=== PATIENT | female | born 1945 | race American Indian/Alaskan Native ===

== ENCOUNTER 2018-06-24 10:33 | Inpatient (IN) | payer MEDICARE ==
[2018-06-24 10:33] VITALS: BMI 40.1
--- NOTE | 2018-06-24 11:17 | C.PDOC ---
History Of Present Illness 72 year old female presents to the ED for evaluation of new onset slurred speech and right leg weakness that started 06/17. Notes initially she began with vertigo like dizziness. The patient [place] [facility] [place]. Per patient she had a head CT, evaluated for possible CO exposure, but notes neg exposure at home per [facility]. Dizziness has since resolved. She also complains of new onset of difficulty ambulating due to right leg weakness, notes it feels unsteady I have to support myself. At baseline notes walking with no difficulty or assistance. + Slurred speech per PMD. Denies fever, chills, and any other associated symptoms. NEW ONSET SLURRED SPEECH, R LEG WEAKNESS SINCE 06/17. [place] [facility] [place], INITIALLY W VERTIGO LIKE DIZZY. PER PT, HAD HEAD CT. EVAL FOR POSSIBLE CO EXPOSURE, BUT "NEG" EXPOSURE @ HOME PER [facility]. DIZZY RESOLVED. NEW ONSET DIFF WALKING DUE TO R LEG WEAKNESS "IT FEELS UNSTEADY I NOW HAVE TO SUPPORT MYSELF". PS PREV WALKS WO DIFF OR ASSISTANCE. +SLURRED SPEECH PER PMD. EXAM NAD NONTOXIC HEENT ATRAUM EXT ATRAUM AROM WO DIFF NO EDEMA NEURO SEE [facility] REMAINDER NEG Time Seen by Provider: 06/24/18 10:40 Chief Complaint (Nursing): Weakness/Neurological Deficit History Per: Patient History/Exam Limitations: no limitations Onset/Duration Of Symptoms: Days Recent travel outside of the [place]: No Past Medical History Reviewed: Historical Data, Nursing Documentation, Vital Signs Vital Signs: Last Vital Signs Temp 98.8 F 06/24/18 10:50 Pulse 86 06/24/18 10:50 Resp 17 06/24/18 10:50 BP 160/92 H 06/24/18 10:50 Pulse Ox 100 06/24/18 10:50 - Medical History PMH: Anemia, HTN, Hypercholesterolemia, Hyperlipidemia Denies: Depression Family History: States: Unknown Family Hx - Social History Hx Tobacco Use: No Hx Alcohol Use: No Hx Substance Use: No - Immunization History Hx Tetanus Toxoid Vaccination: No Hx Influenza Vaccination: No Hx Pneumococcal Vaccination: No Review Of Systems Except As Marked, All Systems Reviewed And Found Negative. Constitutional: Negative for: Fever, Chills Neurological: Positive for: Weakness (to the right lower extremity. ), Dizziness, Other ((+) slurred speech. (+) difficulty ambulating due to right leg weakness.) Physical Exam - Physical Exam Appears: Non-toxic, No Acute Distress Skin: Warm, Dry Head: Atraumatic, Normacephalic Eye(s): bilateral: Normal Inspection Ear(s): Bilateral: Normal Nose: Normal Oral Mucosa: Moist Throat: Normal, No Erythema, No Exudate Neck: Normal ROM, Supple Chest: Symmetrical, No Deformity Cardiovascular: Rhythm Regular, No Murmur Respiratory: Normal Breath Sounds, No Rales, No Rhonchi, No Wheezing, Other (NARD) Gastrointestinal/Abdominal: Normal Exam, Soft, No Tenderness Extremity: Bilateral: Atraumatic, Normal Color And Temperature, Normal ROM (with no difficulty.), Other ((-) edema. ) ED Course And Treatment - Laboratory Results Result Diagrams: 06/24/18 11:40 06/24/18 12:34 O2 Sat by Pulse Oximetry: 100 (RA) Pulse Ox Interpretation: Normal - Other Rad CXR X-Ray: Viewed By Me, Read By Radiologist Interpretation: FINDINGS: LUNGS: No active pulmonary disease. PLEURA: No significant pleural effusion identified, no pneumothorax apparent. CARDIOVASCULAR: No aortic atherosclerotic calcification present. Mild cardiomegaly, likely artifact due to portable apical lordotic technique. No pulmonary vascular congestion. OSSEOUS STRUCTURES: No significant abnormalities. VISUALIZED UPPER ABDOMEN: Normal. OTHER FINDINGS: None. IMPRESSION: No active disease. - CT Scan/US CT Head Other Rad Studies (CT/US): Read By Radiologist CT/US Interpretation: FINDINGS: HEMORRHAGE: No intracranial hemorrhage. BRAIN: No mass effect or edema. Mild diffuse age-appropriate atrophy. There is severe patchy and confluent periventricular and deep/subcortical white matter lucency consistent with microvascular white matter ischemic change. There is a large old right cerebellar peduncle lacunar infarct, of CSF attenuation.. No evidence of acute infarct. There is a bulky calcification along the right aspect of the interhemispheric anterior falx cerebri. The possibility of a calcified meningioma must be considered. There is no noncalcified soft tissue component identified. VENTRICLES: Unremarkable. No hydrocephalus. CALVARIUM: Unremarkable. PARANASAL SINUSES: Unremarkable as visualized. No significant inflammatory changes. MASTOID AIR CELLS: Unremarkable as visualized. No inflammatory changes. OTHER FINDINGS: None. IMPRESSION: No evidence of acute infarct. Severe chronic white matter ischemic change. 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 Bulky calcification along the right aspect of the anterior falx cerebri. Possible calcified meningioma versus falx ossification. NIHSS Stroke Scale - Date/Time Evaluation Performed Date Performed: 06/24/18 Time Performed: 11:17 When Was NIHSS Performed: Baseline - How Severe is the Stroke Level of Consciousness: 0=Alert LOC to Questions: 0=Both comments correct LOC to commands: 0=Obeys both correctly Best Gaze: 0=Normal Visual: 0=No visual loss Facial: 0=Normal Motor Arm - Left: 0=No drift Motor Arm - Right: 0=No drift Motor Leg - Left: 0=No drift Motor Leg - Right: 1=Drift before 5 sec Limb Ataxia: 0=Absent Sensory: 0=Normal Best Language: 0=No aphasia Dysarthia: 0=Normal articulation Extinction & Inattention (Neglect): 0=Normal, no object Score: 1 rTPA Inclusion/Exclusion - Refusal of Treatment Patient Refused Treatment: Yes - Inclusion Criteria for Altepase Patient is 18 years or Older: Yes The Clinical Diagnosis of Ischemic Stroke That is Causing a Potentially Disabling Neurological Deficit: Yes Time of Onset is Well Established to be Less Than 270 Minute Before Treatment Would Begin: No Risk/Benefit Discussed With Patient/Family Member Present: Yes - Exclusion Criteria for Altepase Uncontrolled Hypertension at Time of Treatment (Systolic BP above 185 or Diastolic BP above 110 mmHg): No Active Internal Bleeding: No Known Bleeding Diathesis Including but Not Limited to: Platelets Below 100,000/mm,PTT Above 40 sec After Heparin Use, Current Use of Oral Anitcoagulant With INR Greater Than 1.7 or PT Greater Than 15 secs: No Evidence of an Intracranial Hemorrhage: No Evidence of Major Acute Infarct With Signs Greater Than 1/3 MCA Territory: No Suspicion of Subarachnoid Hemorrhage on Pretreatment Evaluation Even if CT Head Negative For Hemorrhage: No - Warning to TPA With Conditions Following Conditions Weighed Against Anticipated Benefit: Yes Condition: Stroke Serevity Too Mild, Care Team Unable to Determine Eligibilty Medical Decision Making Medical Decision Making: Initial plan: -CT Head w/o contrast -CXR -Blood sent. -EKG -Glucose Disposition Counseled Patient/Family Regarding: Studies Performed, Diagnosis - Disposition Disposition: HOSPITALIZED Disposition Time: 12:13 Condition: STABLE - POA Present On Arrival: None - Clinical Impression Clinical Impression: Leg weakness, Difficulty walking, Slurred speech - Scribe Statement The provider has reviewed the documentation as recorded by the Scribe (Stacy Ahuja) Provider Attestation: All medical record entries made by the Scribe were at my direction and personally dictated by me. I have reviewed the chart and agree that the record accurately reflects my personal performance of the history, physical exam, medical decision making, and the department course for this patient. I have also personally directed, reviewed, and agree with the discharge instructions and disposition.
[2018-06-24 11:44] LABS: BASO # 0.1 K/uL (0.0-0.2); BASO % 1.1 % (0.0-2.0); EOS # 0.2 K/uL (0.0-0.7); EOS % 3.1 % (0.0-4.0); HEMOGLOBIN 10.4 g/dL (11.0-16.0); LYMPH # 2.3 K/uL (1.0-4.3); LYMPH % 32.8 % (20.0-40.0); MEAN CELL VOLUME 91.3 fL (81.0-99.0); MEAN CORPUSCULAR HEMOGLOBIN 30.6 pg (27.0-31.0); MEAN CORPUSCULAR HGB CONC 33.5 g/dL (33.0-37.0); MEAN PLATELET VOLUME 8.8 fL (7.2-11.7); MONO # 0.6 K/uL (0.0-0.8); MONO % 8.6 % (0.0-10.0); NEUT # 3.7 K/uL (1.8-7.0); NEUT % 54.4 % (50.0-75.0); RBC 3.41 Mil/uL (3.80-5.20); RED CELL DISTRIBUTION WIDTH 15.1 % (11.5-14.5); WHITE BLOOD COUNT 6.9 K/uL (4.8-10.8)
[2018-06-24 11:52] LABS: PROTHROMBIN TIME 10.7 SECONDS (9.7-12.2)
[2018-06-24 12:10] LABS: SQUAMOUS EPITHIAL 3 /hpf (0-5); URINE BACTERIA RARE (<OCC); URINE BILIRUBIN NEGATIVE (NEGATIVE); URINE BLOOD NEGATIVE (NEGATIVE); URINE CLARITY Clear (Clear); URINE COLOR Yellow (YELLOW); URINE GLUCOSE (UA) NORMAL (Normal); URINE LEUKOCYTE ESTERASE NEG Leu/uL (Negative); URINE PROTEIN NEGATIVE (NEGATIVE); URINE UROBILINOGEN NORMAL mg/dL (0.2-1.0)
--- NOTE | 2018-06-24 12:11 | CT ---
Date of service: 06/24/2018 PROCEDURE: CT HEAD WITHOUT CONTRAST. HISTORY: R LEG WEAK, SLURRED SPEECH X 6 DAYS COMPARISON: None available. TECHNIQUE: Axial computed tomography images were obtained through the head/brain without intravenous contrast. Radiation dose: Total exam DLP = 1128.12 mGy-cm. This CT exam was performed using one or more of the following dose reduction techniques: Automated exposure control, adjustment of the mA and/or kV according to patient size, and/or use of iterative reconstruction technique. FINDINGS: HEMORRHAGE: No intracranial hemorrhage. BRAIN: No mass effect or edema. Mild diffuse age-appropriate atrophy. There is severe patchy and confluent periventricular and deep/subcortical white matter lucency consistent with microvascular white matter ischemic change. There is a large old right cerebellar peduncle lacunar infarct, of CSF attenuation.. No evidence of acute infarct. There is a bulky calcification along the right aspect of the interhemispheric anterior falx cerebri. The possibility of a calcified meningioma must be considered. There is no noncalcified soft tissue component identified. VENTRICLES: Unremarkable. No hydrocephalus. CALVARIUM: Unremarkable. PARANASAL SINUSES: Unremarkable as visualized. No significant inflammatory changes. MASTOID AIR CELLS: Unremarkable as visualized. No inflammatory changes. OTHER FINDINGS: None. IMPRESSION: No evidence of acute infarct. Severe chronic white matter ischemic change. 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 Bulky calcification along the right aspect of the anterior falx cerebri. Possible calcified meningioma versus falx ossification.
[2018-06-24 13:01] LABS: ALB/GLOB RATIO 1.3 (1.0-2.1); ALBUMIN 4.1 g/dL (3.5-5.0); CALCIUM 9.3 mg/dl (8.6-10.4)
--- NOTE | 2018-06-24 13:01 | RAD ---
Date of service: 06/24/2018 HISTORY: Code Stroke COMPARISON: No prior. FINDINGS: LUNGS: No active pulmonary disease. PLEURA: No significant pleural effusion identified, no pneumothorax apparent. CARDIOVASCULAR: No aortic atherosclerotic calcification present. Mild cardiomegaly, likely artifact due to portable apical lordotic technique. No pulmonary vascular congestion. OSSEOUS STRUCTURES: No significant abnormalities. VISUALIZED UPPER ABDOMEN: Normal. OTHER FINDINGS: None. IMPRESSION: No active disease.
[2018-06-24 13:55] LABS: TROPONIN I 0.128 ng/mL (0.00-0.120)
[2018-06-24 19:12] LABS: FREE T4 1.14 ng/dL (0.78-2.19)
--- NOTE | 2018-06-24 21:35 | CP.PCM.HP ---
Present on Admission - Present on Admission Any Indicators Present on Admission: No Past Patient History - Infectious Disease Hx of Infectious Diseases: None - Past Social History Smoking Status: Never Smoked - CARDIAC Hx Hypercholesterolemia: Yes Hx Hypertension: Yes - ENDOCRINE/METABOLIC Hx Diabetes Mellitus Type 1: Yes - HEMATOLOGICAL/ONCOLOGICAL Hx Anemia: Yes - MUSCULOSKELETAL/RHEUMATOLOGICAL Hx Falls: No - PSYCHIATRIC Hx Depression: No Hx Substance Use: No - SURGICAL HISTORY Hx Surgeries: No - ANESTHESIA Hx Anesthesia: No Meds Allergies/Adverse Reactions: Allergies Allergy/AdvReac Type Severity Reaction Status Date / Time No Known Allergies Allergy Verified 04/01/13 17:07 Results - Vital Signs Recent Vital Signs: Last Vital Signs Temp 99.4 F 06/24/18 16:21 Pulse 71 06/24/18 16:21 Resp 20 06/24/18 16:21 BP 149/72 06/24/18 16:21 Pulse Ox 96 06/24/18 16:30 - Labs Result Diagrams: 06/24/18 11:40 06/24/18 12:34 Labs: Laboratory Results - last 24 hr 06/24/18 06/24/18 06/24/18 11:05 11:40 11:40 WBC 6.9 RBC 3.41 L Hgb 10.4 L Hct 31.1 L MCV 91.3 MCH 30.6 MCHC 33.5 RDW 15.1 H Plt Count 189 MPV 8.8 Neut % (Auto) 54.4 Lymph % (Auto) 32.8 Osborne % (Auto) 8.6 Eos % (Auto) 3.1 Baso % (Auto) 1.1 Neut # (Auto) 3.7 Lymph # (Auto) 2.3 Osborne # (Auto) 0.6 Eos # (Auto) 0.2 Baso # (Auto) 0.1 PT 10.7 INR 1.0 APTT 36 H Sodium Potassium Chloride Carbon Dioxide Anion Gap BUN Creatinine Est GFR ( Amer) Est GFR (Non-Af Amer) POC Glucose (mg/dL) 144 H Random Glucose Calcium Total Bilirubin AST ALT Alkaline Phosphatase Troponin I Total Protein Albumin Globulin Albumin/Globulin Ratio Triglycerides Cholesterol LDL Cholesterol Direct HDL Cholesterol Homocysteine Free T4 TSH 3rd Generation Urine Color Urine Clarity Urine pH Ur Specific [place] Urine Protein Urine Glucose (UA) Urine Ketones Urine Blood Urine Nitrate Urine Bilirubin Urine Urobilinogen Ur Leukocyte Esterase Urine WBC (Auto) Urine RBC (Auto) Ur Squamous Epith Cells Urine Bacteria 06/24/18 06/24/18 06/24/18 11:45 12:34 16:27 WBC RBC Hgb Hct MCV MCH MCHC RDW Plt Count MPV Neut % (Auto) Lymph % (Auto) Osborne % (Auto) Eos % (Auto) Baso % (Auto) Neut # (Auto) Lymph # (Auto) Osborne # (Auto) Eos # (Auto) Baso # (Auto) PT INR APTT Sodium 141 Potassium 4.7 Chloride 105 Carbon Dioxide 27 Anion Gap 14 BUN 29 H Creatinine 1.4 H Est GFR ( Amer) 45 Est GFR (Non-Af Amer) 37 POC Glucose (mg/dL) Random Glucose 134 H Calcium 9.3 Total Bilirubin 0.6 AST 21 ALT 17 Alkaline Phosphatase 94 Troponin I 0.1280 H* 0.1250 H* Total Protein 7.4 Albumin 4.1 Globulin 3.3 Albumin/Globulin Ratio 1.3 Triglycerides 86 Cholesterol 158 LDL Cholesterol Direct 46 HDL Cholesterol 68 Homocysteine Free T4 TSH 3rd Generation Urine Color Yellow Urine Clarity Clear Urine pH 5.0 Ur Specific [place] 1.011 Urine Protein Negative Urine Glucose (UA) Normal Urine Ketones Negative Urine Blood Negative Urine Nitrate Negative Urine Bilirubin Negative Urine Urobilinogen Normal Ur Leukocyte Esterase Neg Urine WBC (Auto) 1 Urine RBC (Auto) 1 Ur Squamous Epith Cells 3 Urine Bacteria Rare 06/24/18 06/24/18 18:47 18:47 WBC RBC Hgb Hct MCV MCH MCHC RDW Plt Count MPV Neut % (Auto) Lymph % (Auto) Osborne % (Auto) Eos % (Auto) Baso % (Auto) Neut # (Auto) Lymph # (Auto) [place] # (Auto) Eos # (Auto) Baso # (Auto) PT INR APTT Sodium Potassium Chloride Carbon Dioxide Anion Gap BUN Creatinine Est GFR ( Amer) Est GFR (Non-Af Amer) POC Glucose (mg/dL) Random Glucose Calcium Total Bilirubin AST ALT Alkaline Phosphatase Troponin I Total Protein Albumin Globulin Albumin/Globulin Ratio Triglycerides Cholesterol LDL Cholesterol Direct HDL Cholesterol Homocysteine 17.3 H Free T4 1.14 TSH 3rd Generation 1.55 Urine Color Urine Clarity Urine pH Ur Specific [place] Urine Protein Urine Glucose (UA) Urine Ketones Urine Blood Urine Nitrate Urine Bilirubin Urine Urobilinogen Ur Leukocyte Esterase Urine WBC (Auto) Urine RBC (Auto) Ur Squamous Epith Cells Urine Bacteria
--- NOTE | 2018-06-25 08:23 | HP ---
CHIEF COMPLAINT: Slurring of speech and weakness of the right side, difficulty walking for few days. HISTORY OF PRESENT ILLNESS: This is a 72-year-old -[place] female, well known to me with history of hypertension, hyperlipidemia, who is compliant with her diet, medication, and followup. The patient was in the emergency room a week ago, and she was having some symptoms of right-sided numbness and weakness. She underwent a CAT scan, and the patient was also evaluated for possible exposure to carbon monoxide. She also was complaining of dizziness or vertigo at that time. The patient was evaluated. Her dizziness was resolved. She was sent home. The patient did not improve. She continued to have right-sided weakness, tingling on the face, numbness, and the patient is not able to control her gait. She has difficulty walking. She is weak. She also denied any chest pain. She denies any history of dyspnea on exertion, orthopnea, PND, or . She is having hard time producing words. The patient denies any history of seizure-like activity. She denies a history of head injury, trauma, fall, or loss of consciousness. There is no history of abdominal pain, nausea, vomiting, or diarrhea. There is no history of polyuria, polydipsia, or polyphagia. There is no history of hematuria or pyuria. The patient denies any sneezing, itchy eyes, or itchy nose. There is no history of trauma or fall. The patient denies any history of joint pain or hip pain. She denies any sneezing, itchy eyes, or itchy nose. PAST MEDICAL HISTORY: Hypertension, hyperlipidemia. SOCIAL HISTORY: She is nonsmoker, non-EtOH user. CURRENT MEDICATIONS: At home, she is on Benicar and Lipitor. PHYSICAL EXAMINATION: GENERAL: An elderly female, in no acute distress. VITAL SIGNS: Blood pressure 161/78, pulse 81, respiratory rate 20, and temperature 98.6. SKIN: Senile turgor. No bruises. No purpura. No petechiae. No ecchymosis. HEENT: Atraumatic, normocephalic. Negative pallor. Negative jaundice. Extraocular movements are intact. NECK: Supple. Flat neck vein. No JVD. No lymph nodes. No thyromegaly. No carotid bruit. CHEST WALL: Bilateral symmetrical expansion. LUNGS: Clear. No rale. No rhonchi. CARDIOVASCULAR SYSTEM: PMI not localized. S1, S2 plus S3 positive. ABDOMEN: Soft, nontender. Bowel sounds are positive. RECTAL: No masses. No bleed. GENITAL: Normal. CENTRAL NERVOUS SYSTEM: Alert, awake, and oriented x3. Cranial nerves II through XII are normal. The patient has slurring of speech, and her right-sided power is 4/5, left side is 5/5. ASSESSMENT: 1. Cerebrovascular accident, most likely it is left middle cerebral artery territory. 2. Hypertension, poorly controlled. 3. Hyperlipidemia. 4. The patient also has positive troponin. Rule out myocardial infarction. PLAN: Admit. Detailed orders are written. Seen and examined. Wilfred Chacon MD
[2018-06-25] MEDS: Pantoprazole 40 mg EC Tab PO SCH (09:43)
--- NOTE | 2018-06-25 13:38 | CP.PCM.CON ---
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 PAROXYSMAL AFIB CARDIO FOLLOW UP AND POSSIBLE LOOP RECORDING CONTINUE ANTIPLATELETS, ARB, & STATIN MRI/EEG/ECHO Past Patient History - Infectious Disease Hx of Infectious Diseases: None - Past Social History Smoking Status: Never Smoked - CARDIAC Hx Hypercholesterolemia: Yes Hx Hypertension: Yes - ENDOCRINE/METABOLIC Hx Diabetes Mellitus Type 1: Yes - HEMATOLOGICAL/ONCOLOGICAL Hx Anemia: Yes - MUSCULOSKELETAL/RHEUMATOLOGICAL Hx Falls: No - PSYCHIATRIC Hx Depression: No Hx Substance Use: No - SURGICAL HISTORY Hx Surgeries: No - ANESTHESIA Hx Anesthesia: No Meds Allergies/Adverse Reactions: Allergies Allergy/AdvReac Type Severity Reaction Status Date / Time No Known Allergies Allergy Verified 04/01/13 17:07 - Medications Medications: Current Medications Acetaminophen (Tylenol 325mg Tab) 650 mg PO Q6 PRN PRN Reason: Pain, moderate (4-7) Aspirin (Aspirin Chewable) 81 mg PO DAILY [facility] Last Admin: 06/25/18 09:43 Dose: 81 mg Carvedilol (Coreg) 3.125 mg PO BID [facility] Last Admin: 06/25/18 09:42 Dose: 3.125 mg Folic Acid (Folic Acid) 1 mg PO DAILY [facility] Heparin Sodium (Porcine) (Heparin) 5,000 units SC Q8 [facility] Last Admin: 06/25/18 13:01 Dose: 5,000 units Losartan Potassium (Cozaar) 25 mg PO DAILY [facility] Last Admin: 06/25/18 09:43 Dose: 25 mg Pantoprazole Sodium (Protonix Ec Tab) 40 mg PO DAILY [facility] Last Admin: 06/25/18 09:43 Dose: 40 mg Rosuvastatin Calcium (Crestor) 10 mg PO HS [facility] Results - Vital Signs Recent Vital Signs: Last Vital Signs Temp 98.3 F 06/25/18 07:30 Pulse 79 06/25/18 12:25 Resp 18 06/25/18 07:30 BP 141/75 06/25/18 07:30 Pulse Ox 96 06/25/18 07:30 - Labs Result Diagrams: 06/24/18 11:40 06/24/18 12:34 Labs: Laboratory Results - last 24 hr 06/24/18 06/24/18 06/24/18 11:40 12:34 16:27 POC Glucose (mg/dL) Hemoglobin A1c 8.1 H Troponin I 0.1280 H* 0.1250 H* Homocysteine Free T4 TSH 3rd Generation 06/24/18 06/24/18 06/24/18 16:55 18:47 18:47 POC Glucose (mg/dL) 128 H Hemoglobin A1c Troponin I Homocysteine 17.3 H Free T4 1.14 TSH 3rd Generation 1.55 06/24/18 06/25/18 21:00 00:25 POC Glucose (mg/dL) 137 H Hemoglobin A1c Troponin I 0.1280 H* Homocysteine Free T4 TSH 3rd Generation
--- NOTE | 2018-06-25 22:54 | CP.PCM.PN ---
Subjective - Date & Time of Evaluation Date of Evaluation: 06/25/18 Time of Evaluation: 08:30 - Subjective Subjective: dictated Objective - Vital Signs/Intake and Output Vital Signs (last 24 hours): Temp Pulse Resp BP Pulse Ox 98.2 F 67 18 117/55 L 100 06/25/18 15:39 06/25/18 15:39 06/25/18 15:39 06/25/18 15:39 06/25/18 15:39 Intake and Output: 06/25/18 06/26/18 18:59 06:59 Intake Total 350 Balance 350 - Medications Medications: Current Medications Acetaminophen (Tylenol 325mg Tab) 650 mg PO Q6 PRN PRN Reason: Pain, moderate (4-7) Aspirin (Aspirin Chewable) 81 mg PO DAILY [facility] Last Admin: 06/25/18 09:43 Dose: 81 mg Carvedilol (Coreg) 3.125 mg PO BID [facility] Last Admin: 06/25/18 17:13 Dose: 3.125 mg Folic Acid (Folic Acid) 1 mg PO DAILY [facility] Heparin Sodium (Porcine) (Heparin) 5,000 units SC Q8 [facility] Last Admin: 06/25/18 21:37 Dose: 5,000 units Losartan Potassium (Cozaar) 25 mg PO DAILY [facility] Last Admin: 06/25/18 09:43 Dose: 25 mg Pantoprazole Sodium (Protonix Ec Tab) 40 mg PO DAILY [facility] Last Admin: 06/25/18 09:43 Dose: 40 mg Rosuvastatin Calcium (Crestor) 10 mg PO HS [facility] Last Admin: 06/25/18 21:37 Dose: 10 mg - Labs Labs: 06/24/18 11:40 06/24/18 12:34 PT 10.7 SECONDS (9.7-12.2) 06/24/18 11:40 INR 1.0 06/24/18 11:40 APTT 36 SECONDS (21-34) H 06/24/18 11:40
--- NOTE | 2018-06-26 02:52 | CON ---
DATE: 06/25/2018 REASON FOR CONSULTATION: Elevated troponin. HISTORY OF PRESENT ILLNESS: The patient is 72-year-old female who has history of hypertension and diabetes mellitus, unaware of any prior cardiac history or any history of stroke in the past, presented because of right leg weakness and inability to walk while she was in her sister's home. The patient also noticed slurring of speech and numbness in her right side of the face. She denied any right arm weakness. She did feel dizzy initially. Her speech has improved overnight, but the right leg weakness had persisted to a lesser extent. The patient denies any retrosternal chest pain, shortness of breath, or palpitations. The patient denies any syncope or fall episode. PAST MEDICAL HISTORY: The patient denies any history of stroke or heart attack. No history of cancer. SOCIAL HISTORY: The patient is nonsmoker and nondrinker. MEDICATIONS: Aspirin 81 mg once a day, Coreg 3.125 mg twice a day, Cozaar 25 mg once a day, Crestor 10 mg once a day, Folic acid 1 mg daily, subcutaneous heparin 5000 units every 8 hours, Protonix 40 mg once a day, and Tylenol 650 mg every 6 hours p.r.n. REVIEW OF SYSTEMS: No nausea or vomiting, no fever or chills, and no productive cough, no retrosternal chest pain. PHYSICAL EXAMINATION: GENERAL: The patient is an elderly female, who does not appear to be in acute distress. VITAL SIGNS: Blood pressure 141/75, heart rate 70, temperature 98.4, and respirations 18. HEENT: Normocephalic. CHEST: Clear. HEART: S1 and S2, regular. ABDOMEN: Soft. EXTREMITIES: 1+ pitting edema. LABORATORY DATA: SMA-7: Sodium 141, potassium 4.7, chloride 105, CO2 of 27, glucose 134, BUN 29, and creatinine 1.4. Troponins were 0.128, 0.125, and 0.128 respectively. TSH level is within normal limits. Hemoglobin and hematocrit 10.4 and 31.1. White count and platelet counts are within normal limits. PTT 36, INR is 1. Chest x-ray: No active disease. EKG revealed sinus rhythm, old anterior infarct, and poor R-wave progression. Consider old anterior infarct. Head CT scan without contrast, no evidence of , severe chronic white matter ischemic changes. Large old right cerebellar peduncle lacunar infarct, falcine calcification along the right aspect of the anterior falx cerebri. Possible calcified meningioma, with falx ossification. ASSESSMENT: 1. Consider acute cerebrovascular accident. 2. Borderline troponin elevation, most likely related to the acute cerebrovascular accident and less likely to [id number] myocardial infarction. 3. Hypertension and diabetes mellitus. 4. Chronic renal insufficiency. 5. Mild anemia. RECOMMENDATIONS: Continue aspirin 81 mg once a day, Coreg 3.125 mg twice a day, Cozaar 25 mg once a day, and heparin 5000 units subcutaneously every 8 hours. Obtain an echocardiographic study, carotid Doppler, and the patient is scheduled for brain MRI. Teja Doll MD
--- NOTE | 2018-06-26 04:43 | PN ---
DATE: 06/25/2018 SUBJECTIVE: The patient is seen by Neurology. She still has right-sided weakness, and she is for MRI, carotid Doppler, and echocardiogram. Positive troponin. No nausea, vomiting. PHYSICAL EXAMINATION: VITAL SIGNS: Blood pressure 171/54, pulse 67, respiratory rate 18, temperature 98.2. LUNGS: Clear. CARDIOVASCULAR SYSTEM: S1, S2. Regular. ABDOMEN: Soft. ASSESSMENT: 1. Positive troponin. Rule out myocardial infarction. Pending echocardiogram. 2. Cerebrovascular accident. 3. Hypertension. PLAN: MRI, echocardiogram pending. Wilfred Chacon MD
--- NOTE | 2018-06-26 07:11 | CON ---
DATE: 06/25/2018 ATTENDING PHYSICIAN: Wilfred Chacon MD. LOCATION: The patient's room# 656, bed A. REASON FOR CONSULTATION: Right leg weakness. CHIEF COMPLAINT: The patient was admitted at [facility] with history of 2 days of right leg weakness. From neurological point of view, I was called in to evaluate her for further management. HISTORY OF PRESENT ILLNESS: Ms. Stephanie Mas is a 72-year-old right-handed , morbidly obese female, presenting with about a week ago she started to have dizziness for a few days; later, while she was at home had abrupt onset of right leg weakness which was not making to walk or drag her legs. Some difference in the right leg symptoms associating with some problem of getting her words out. This episode was for about a day as two. At present, she denies any new complaints. The symptoms are all gone at present. This episode is not associating with visual dysfunction. No sensory dysfunction. This similar symptoms are all new to her, never had it before, not associating with any involuntary movements. PAST MEDICAL HISTORY: [id number] diabetes mellitus, hypertension, dyslipidemia. ALLERGIES: NO KNOWN ALLERGIES. REVIEW OF SYSTEMS: Twelve-point system being reviewed. From neuro, new right leg weakness. MEDICATIONS: Aspirin, carvedilol, losartan, rosuvastatin, pantoprazole. PHYSICAL EXAMINATION: VITAL SIGNS: Blood pressure 141/75, mean arterial pressure 97, respiratory rate 18, pulse rate 79 and regular, temperature 98.3. NECK: Supple. No carotid bruits. HEART: Sounds regular. Systolic murmur at left sternal border. Extremities: No edema in legs. NEUROLOGIC: Mental status examination: She is awake, alert and oriented to person, place and time. Speech is clear. Naming, repetition, fluency, comprehension all within normal. Cranial nerve examination: Visual field intact. Pupils reactive to light. Extraocular movement normal. No nystagmus. No facial sensory deficit. No facial asymmetry. Hearing is normal. Tongue is midline. Good gag. Motor examination: Outstretched hand with eyes closed, no drift noted. Power is symmetric on either side. Deep tendon reflexes biceps, brachialis, triceps trace and both knees and both ankles are absent. Plantars are equivocal response on both sides. Sensory examination: Distal symmetric sensorimotor neuropathy. Coordination: Finger-nose test is intact. Gait is normal. CONCLUSION: On reviewing her history from her as well as from the records and my neurological examination, the patient showed evidence of posterior cerebral artery dysfunction manifesting with dizziness, right leg weakness and some Broca's aphasia, all consistent with dominant hemispheric dysfunction. This probably thromboembolic phenomena either could be from the heart or carotid source. The patient is also presenting with bilateral distal symmetric sensorimotor neuropathy. LABORATORY DATA: Her workup, CT of the head has been reviewed, no acute pathology is noted. EKG normal sinus rhythm. Blood workup, WBC 6.9, hemoglobin 10.4, hematocrit 31.4, platelet 189. Sodium 141, potassium 4.7, chloride 105, bicarbonate 27, BUN 29, creatinine 1.4, glucose 137, troponin 0.1280, homocysteine 17.3. TSH of 1.55. Cholesterol 158, triglyceride 86, HDL is 68, TSH 1.55. Urinalysis is normal. RECOMMENDATIONS: 1. MRI of the brain to rule out any structural cause for her problem. 2. Carotid Doppler to assess the stenosis. 3. Cardioembolic phenomena should be ruled out by doing echocardiogram. 4. Diabetic control, blood pressure control. 5. Continue aspirin for stroke prophylaxis. Continue other medication as well for low-dose statin and angiotensin receptor blockers. 6. Considering her physique the patient should have a polysomnogram which can be done as outpatient to rule out sleep-related breathing disorder which could be the comorbid risk factors which has to be studied and corrected. 7. Losing weight, diabetic control, blood pressure control, all been discussed with the patient. 8. The patient will be followed closely with you. Pro Harmon MD
--- NOTE | 2018-06-26 11:26 | PN ---
DATE: 06/26/2018 TIME OF EVALUATION: 06:40 a.m. NEUROLOGICAL PROBLEM: Possible [employer] territory TIA. PHYSICAL EXAMINATION: VITAL SIGNS: Blood pressure 159/85, mean arterial pressure 109, respiratory rate 18 to 20, pulse rate of 65 and regular, temperature 98.5. The patient is more awake, alert, oriented to person, place, and time. She walked to herself with the knees around the hallway holding the rails and the wall. Speech has not changed. Denies any speech impairment at present. No dizziness. Rest of the examination is unchanged. The patient should have MRI of the brain today prior to discharge. Continue antiplatelets as recommended. If all good medically, the patient can be discharged and should have followup visit with me as outpatient. Pro Harmon MD
[2018-06-26] MEDS: Pantoprazole 40 mg EC Tab PO SCH (12:19)
[2018-06-26 14:14] LABS: BASO % 0.4 % (0.0-2.0); EOS # 0.2 K/uL (0.0-0.7); EOS % 2.9 % (0.0-4.0); LYMPH # 2.5 K/uL (1.0-4.3); LYMPH % 35.9 % (20.0-40.0); MEAN CELL VOLUME 92.1 fL (81.0-99.0); MEAN CORPUSCULAR HEMOGLOBIN 30.4 pg (27.0-31.0); MEAN PLATELET VOLUME 8.9 fL (7.2-11.7); MONO # 0.5 K/uL (0.0-0.8); NEUT # 3.8 K/uL (1.8-7.0); NEUT % 53.8 % (50.0-75.0); RBC 3.62 Mil/uL (3.80-5.20); RED CELL DISTRIBUTION WIDTH 15.3 % (11.5-14.5)
[2018-06-26 14:22] LABS: CALCIUM 9.3 mg/dl (8.6-10.4)
[2018-06-26 16:03] VITALS: RESP 20
--- NOTE | 2018-06-26 18:20 | PN ---
DATE: 06/26/2018 SUBJECTIVE: The patient is still experiencing right leg weakness. An MRI was attempted, but the patient could not fit in the machine. The patient did ambulate with the help of walking cane and the physical therapy team. She denies any substernal chest pain. PHYSICAL EXAMINATION: VITAL SIGNS: Blood pressure 182/83, heart rate 68, temperature 98.3, and respirations 20. HEENT: Pale conjunctivae. CHEST: Clear. HEART: S1 and S2 regular. EXTREMITIES: 1+ pitting edema. LABORATORY DATA: Today's blood sugar is 145. ASSESSMENT : 1. Borderline troponin elevation. 2. Consider acute cerebrovascular accident. 3. Hypertension and diabetes mellitus. 4. Mild anemia. 5. Chronic renal insufficiency. RECOMMENDATIONS: Continue aspirin 81 mg once a day, Coreg 3.125 mg twice a day, Cozaar 50 mg once a day, Crestor 10 mg once a day, subcutaneous heparin 5000 units every 8 hours. I would review the echocardiographic study done today. Follow up carotid Doppler. In the meantime, I recommend obtaining repeat head CT scan without contrast. Teja Doll MD
--- NOTE | 2018-06-26 20:10 | CARD ---
APPROVED REPORT Date of service: 06/26/2018 EXAM: Two-dimensional and M-mode echocardiogram with Doppler and color Doppler. Other Information Quality : GoodRhythm : INDICATION CVA/TIA 2D DIMENSIONS IVSd1.5 (0.7-1.1cm)LVDd4.1 (3.9-5.9cm) PWd1.3 (0.7-1.1cm)LA Alfctf83 (18-58mL) LVDs3.1 (2.5-4.0cm)FS (%) 25.2 % LVEF (%)55.0 (>50%)LVEF ([facility])61.51 % M-Mode DIMENSIONS Left Atrium (MM)3.66 (2.5-4.0cm)IVSd0.85 (0.7-1.1cm) Aortic Root3.61 (2.2-3.7cm)LVDd6.79 (4.0-5.6cm) Aortic Cusp Exc.1.77 (1.5-2.0cm)PWd0.77 (0.7-1.1cm) FS (%) 35 %LVDs4.40 (2.0-3.8cm) LVEF (%)63 (>50%) Mitral Valve MV E Hezutdyc022.5cm/sMV A Ihktwvqv722.8cm/sE/A ratio0.9 TDI Lateral E' Peak V5.84cm/sMedial E' Peak V5.90cm/sE/Lateral E'17.6 E/Medial E'17.4 Tricuspid Valve TR Peak Hizlqciy688wo/sTR Peak Gr.14pnNfPZVB24jcTn LEFT VENTRICLE The left ventricle is normal size. There is normal left ventricular wall thickness. The left ventricular function is normal. The left ventricular ejection fraction is within the normal range. No regional wall motion abnormalities noted. Transmitral Doppler flow pattern is Grade II-pseudonormal filling dynamics. The left atrial pressure is mildly elevated. No left ventricle thrombus noted on this study. There is no ventricular septal defect visualized. There is no left ventricular aneurysm. There is no mass noted in the left ventricle. RIGHT VENTRICLE The right ventricle is normal size. There is normal right ventricular wall thickness. The right ventricular systolic function is normal. ATRIA The left atrium size is normal. The right atrium size is normal. The interatrial septum is intact with no evidence for an atrial septal defect. AORTIC VALVE The aortic valve is mildly to moderately sclerotic. There is mild aortic regurgitation. There is no aortic valvular stenosis. There is no aortic valvular vegetation. MITRAL VALVE The mitral valve is normal in structure and function. Mitral annular calcification is mild to moderate. There is no evidence of mitral valve prolapse. There is no mitral valve stenosis. There is no mitral valve regurgitation noted. TRICUSPID VALVE The tricuspid valve is normal in structure and function. There is no tricuspid valve regurgitation noted. There is no tricuspid valve prolapse or vegetation. There is no tricuspid valve stenosis. PULMONIC VALVE The pulmonary valve is normal in structure and function. There is no pulmonic valvular regurgitation. There is no pulmonic valvular stenosis. GREAT VESSELS The aortic root is normal in size. The ascending aorta is normal in size. The pulmonary artery is normal. The IVC is normal in size and collapses >50% with inspiration. PERICARDIAL EFFUSION The pericardium appears normal. There is no pleural effusion. <Conclusion> The left ventricular function is normal. The left ventricular ejection fraction is within the normal range. No regional wall motion abnormalities noted. Transmitral Doppler flow pattern is Grade II-pseudonormal filling dynamics. The left atrial pressure is mildly elevated. There is mild aortic regurgitation.
--- NOTE | 2018-06-27 02:59 | CP.PCM.PN ---
Subjective - Date & Time of Evaluation Date of Evaluation: 06/26/18 Time of Evaluation: 08:00 - Subjective Subjective: dictated Objective - Vital Signs/Intake and Output Vital Signs (last 24 hours): Temp Pulse Resp BP Pulse Ox 98.6 F 62 20 111/73 97 06/26/18 23:25 06/27/18 00:28 06/26/18 23:25 06/26/18 23:25 06/26/18 23:25 Intake and Output: 06/26/18 06/27/18 18:59 06:59 Intake Total 250 Balance 250 - Medications Medications: Current Medications Acetaminophen (Tylenol 325mg Tab) 650 mg PO Q6 PRN PRN Reason: Pain, moderate (4-7) Aspirin (Aspirin Chewable) 81 mg PO DAILY [facility] Last Admin: 06/26/18 12:19 Dose: 81 mg Carvedilol (Coreg) 6.25 mg PO BID [facility] Last Admin: 06/26/18 17:54 Dose: 6.25 mg Folic Acid (Folic Acid) 1 mg PO DAILY [facility] Last Admin: 06/26/18 12:19 Dose: 1 mg Heparin Sodium (Porcine) (Heparin) 5,000 units SC Q8 [facility] Last Admin: 06/26/18 21:50 Dose: 5,000 units Losartan Potassium (Cozaar) 50 mg PO DAILY [facility] Last Admin: 06/26/18 12:19 Dose: 50 mg Pantoprazole Sodium (Protonix Ec Tab) 40 mg PO DAILY [facility] Last Admin: 06/26/18 12:19 Dose: 40 mg Rosuvastatin Calcium (Crestor) 10 mg PO HS [facility] Last Admin: 06/26/18 21:50 Dose: 10 mg - Labs Labs: 06/26/18 13:58 06/26/18 13:58 PT 10.7 SECONDS (9.7-12.2) 06/24/18 11:40 INR 1.0 06/24/18 11:40 APTT 36 SECONDS (21-34) H 06/24/18 11:40
--- NOTE | 2018-06-27 06:18 | PN ---
DATE: 06/27/2018 SUBJECTIVE: The patient is waiting for an echocardiogram. Her troponins are positive. The patient's blood pressure is down. MRI could not be done because of body habitus. No fever. No chills. PHYSICAL EXAMINATION: VITAL SIGNS: Blood pressure 152/76, pulse 73, respiratory rate 20, temperature 98.6. LUNGS: Clear. CARDIOVASCULAR SYSTEM: S1 and S2. Regular. ABDOMEN: Soft. ASSESSMENT: 1. Cerebrovascular accident. 2. Diabetes. 3. Positive troponin, rule out myocardial infarction, rule out coronary artery disease. PLAN: Awaiting echocardiogram. Monitor the patient. Wilfred Chacon MD
[2018-06-27] MEDS: Pantoprazole 40 mg EC Tab PO SCH (10:19)
--- NOTE | 2018-06-27 10:48 | CT ---
Date of service: 06/27/2018 PROCEDURE: CT HEAD WITHOUT CONTRAST. HISTORY: R/O NEW CVA COMPARISON: Comparison made with prior CT scan 06/24/2018. TECHNIQUE: Axial computed tomography images were obtained through the head/brain without intravenous contrast. Radiation dose: Total exam DLP = 1100.49 mGy-cm. This CT exam was performed using one or more of the following dose reduction techniques: Automated exposure control, adjustment of the mA and/or kV according to patient size, and/or use of iterative reconstruction technique. FINDINGS: HEMORRHAGE: No acute parenchymal, subarachnoid or extra-axial hemorrhage. BRAIN: Moderate to fairly significant diffuse and confluent chronic white matter ischemic changes are again seen extending peripherally into the deep and subcortical white matter both cerebral hemispheres. In addition, there are scattered chronic appearing bilateral basal nuclei lacunar type infarcts. Also again seen is a rounded low-attenuation focus in the right middle cerebellar peduncle which could represent an old infarct as well. Right note that the possibility of a small hyperacute infarct cannot be excluded on this exam. Moderate generalized volume loss. Minor vascular calcifications both carotid siphons and to a lesser degree vertebral arteries Also again noted is an large elliptical shaped calcification within the anterior superior aspect of the interhemispheric fissure felt to represent a simple dural based calcification VENTRICLES: No obstructive hydrocephalus. CALVARIUM: There are no acute calvarial fracture seen. PARANASAL SINUSES: Frontal sinuses are again seen nearly completely atretic. The remaining visualized paranasal sinuses are well-developed and currently well-aerated. MASTOID AIR CELLS: Unremarkable as visualized. No inflammatory changes. OTHER FINDINGS: None. IMPRESSION: Moderate to fairly significant diffuse and confluent chronic white matter ischemic changes are again seen extending peripherally into the deep and subcortical white matter both cerebral hemispheres. In addition, there are scattered chronic appearing bilateral basal nuclei lacunar type infarcts. Also again seen is a rounded low-attenuation focus in the right middle cerebellar peduncle which could represent an old infarct as well. Right note that the possibility of a small hyperacute infarct cannot be excluded on this exam. Moderate generalized volume loss.
--- NOTE | 2018-06-27 12:04 | CARD ---
APPROVED REPORT Date of service: 06/24/2018 EKG Measurement Heart [id number] <Conclusion> Normal sinus rhythm Inferior infarct, age undetermined Anterior infarct, age undetermined Abnormal ECG
--- NOTE | 2018-06-27 16:45 | EEG ---
DATE: 06/26/2018 This is a 16-channel electroencephalogram of awake and drowsy adult. During the study, photic stimulation was performed, hyperventilation was not performed. The resting electroencephalogram consists of moderate-voltage 40 to 50 microvolt, alpha activity seen at parietal and occipital leads. activities are composed with 2 to 3 Hz delta activity seen. The photic stimulation did not evoke driving response noted at 2 to 20 Hz. IMPRESSION: This is a normal electroencephalogram of awake and drowsy adult. During the study, neither electroencephalographic paroxysmal activities nor focal slowing noted. Pro Harmon MD
--- NOTE | 2018-06-27 18:07 | PN ---
DATE: 06/27/2018 SUBJECTIVE: The patient is still experiencing mild right leg weakness. She is agitated. She denies any speech difficulty, no substernal chest pain and no shortness of breath. Neurologic . PHYSICAL EXAMINATION: VITAL SIGNS: Blood pressure 153/84, heart rate 62, temperature 98, and respirations 20. HEENT: Normocephalic. CHEST: Clear. HEART: S1 and S2 regular. EXTREMITIES: Trace leg edema. LABORATORY DATA: Today's blood sugar is 137 and 143 respectively. A repeat head CT scan without contrast revealed moderate or fairly significant diffuse and chronic white matter ischemic changes extending peripherally into the deep and subcortical white matter both cerebral hemispheres. In addition there is scattered chronic appearing bilateral basal nuclei lacunar type infarct. Also seen rounded low-attenuation focus in the right middle cerebral peduncle which could represent an old infract as well. Right note that the possibility of small hyperacute infarction can be excluded on this exam. ASSESSMENT : 1. Consider acute cerebrovascular accident. 2. History of multiple old automatic implantable cardioverter defibrillators. 3. Chronic renal insufficiency. 4. Borderline troponin elevation. 5. Hypertension and diabetes mellitus. RECOMMENDATIONS: Continue current aspirin 81 mg once a day, Coreg 6.25 mg twice a day, Cozaar 50 mg once a day, Crestor 10 mg once a day, Glucophage 500 mg twice a day, subcutaneous heparin 5000 units every 8 hours. The patient is not a suitable candidate for any invasive cardiac work up until she is completely neurologically stable for at lest two to four weeks. Teja Doll MD
--- NOTE | 2018-06-27 20:59 | CP.PCM.PN ---
Subjective - Date & Time of Evaluation Date of Evaluation: 06/27/18 Time of Evaluation: 08:40 - Subjective Subjective: dictated Objective - Vital Signs/Intake and Output Vital Signs (last 24 hours): Temp Pulse Resp BP Pulse Ox 98.1 F 68 20 142/83 98 06/27/18 15:19 06/27/18 15:20 06/27/18 15:19 06/27/18 15:19 06/27/18 15:19 - Medications Medications: Current Medications Acetaminophen (Tylenol 325mg Tab) 650 mg PO Q6 PRN PRN Reason: Pain, moderate (4-7) Aspirin (Aspirin Chewable) 81 mg PO DAILY [facility] Last Admin: 06/27/18 10:19 Dose: 81 mg Carvedilol (Coreg) 6.25 mg PO BID [facility] Last Admin: 06/27/18 17:11 Dose: 6.25 mg Folic Acid (Folic Acid) 1 mg PO DAILY [facility] Last Admin: 06/27/18 10:18 Dose: 1 mg Heparin Sodium (Porcine) (Heparin) 5,000 units SC Q8 [facility] Last Admin: 06/27/18 13:26 Dose: 5,000 units Losartan Potassium (Cozaar) 50 mg PO DAILY [facility] Last Admin: 06/27/18 10:19 Dose: 50 mg Metformin HCl (Glucophage) 500 mg PO BID [facility] Last Admin: 06/27/18 17:10 Dose: 500 mg Pantoprazole Sodium (Protonix Ec Tab) 40 mg PO DAILY [facility] Last Admin: 06/27/18 10:19 Dose: 40 mg Rosuvastatin Calcium (Crestor) 10 mg PO HS [facility] Last Admin: 06/26/18 21:50 Dose: 10 mg - Labs Labs: 06/26/18 13:58 06/26/18 13:58 PT 10.7 SECONDS (9.7-12.2) 06/24/18 11:40 INR 1.0 06/24/18 11:40 APTT 36 SECONDS (21-34) H 06/24/18 11:40
--- NOTE | 2018-06-28 02:27 | PN ---
DATE: 06/27/2018 SUBJECTIVE: The patient's echocardiogram is normal. She is afebrile. She has right-sided weakness with numbness of the face. She has some slurring of speech. She is agreeable for subacute rehab. No fever. No chills. No nausea or vomiting. PHYSICAL EXAMINATION: VITAL SIGNS: Blood pressure 142/83, pulse 65, respiratory rate 20, and temperature 98.1. LUNGS: Clear. CARDIOVASCULAR SYSTEM: S1 and S2 are regular. ABDOMEN: Soft. CENTRAL NERVOUS SYSTEM: Awake, alert, and oriented x3. ASSESSMENT: 1. Cerebrovascular accident with right-sided weakness. 2. Hypertension. 3. Diabetes. 4. Obesity. PLAN: Physical therapy. Rehab. Monitor the patient. Wilfred Chacon MD
[2018-06-28] MEDS: Pantoprazole 40 mg EC Tab PO SCH (09:47)
[2018-06-28 12:17] LABS: CALCIUM 9.2 mg/dl (8.6-10.4)
--- NOTE | 2018-06-28 21:21 | CP.PCM.PN ---
Subjective - Date & Time of Evaluation Date of Evaluation: 06/28/18 Time of Evaluation: 08:00 - Subjective Subjective: dictated Objective - Vital Signs/Intake and Output Vital Signs (last 24 hours): Temp Pulse Resp BP Pulse Ox 98.8 F 59 L 20 148/91 H 99 06/28/18 15:00 06/28/18 15:00 06/28/18 15:00 06/28/18 15:00 06/28/18 15:00 Intake and Output: 06/28/18 06/29/18 18:59 06:59 Intake Total 324 Balance 324 - Medications Medications: Current Medications Acetaminophen (Tylenol 325mg Tab) 650 mg PO Q6 PRN PRN Reason: Pain, moderate (4-7) Aspirin (Aspirin Chewable) 81 mg PO DAILY [facility] Last Admin: 06/28/18 09:48 Dose: 81 mg Carvedilol (Coreg) 6.25 mg PO BID [facility] Last Admin: 06/28/18 17:28 Dose: 6.25 mg Folic Acid (Folic Acid) 1 mg PO DAILY [facility] Last Admin: 06/28/18 09:47 Dose: 1 mg Losartan Potassium (Cozaar) 50 mg PO DAILY [facility] Last Admin: 06/28/18 09:48 Dose: 50 mg Metformin HCl (Glucophage) 500 mg PO BID [facility] Last Admin: 06/28/18 17:28 Dose: 500 mg Pantoprazole Sodium (Protonix Ec Tab) 40 mg PO DAILY [facility] Last Admin: 06/28/18 09:47 Dose: 40 mg Rosuvastatin Calcium (Crestor) 10 mg PO HS [facility] Last Admin: 06/27/18 21:49 Dose: 10 mg - Labs Labs: 06/26/18 13:58 06/28/18 11:24 PT 10.7 SECONDS (9.7-12.2) 06/24/18 11:40 INR 1.0 06/24/18 11:40 APTT 36 SECONDS (21-34) H 06/24/18 11:40
--- NOTE | 2018-06-28 22:08 | PN ---
DATE: 06/28/2018 SUBJECTIVE: The patient denies chest pain or shortness of breath. Denies any dizziness. She ambulated with physical therapy team and walking cane. PHYSICAL EXAMINATION: VITAL SIGNS: Blood pressure 148/91, heart rate 59, temperature 98.8, respirations 20. HEENT: Normocephalic. CHEST: Clear. HEART: S1 and S2, regular. EXTREMITIES: Trace leg edema. LABORATORY DATA: Today's BUN and creatinine 35 and 1.7. Glucose 198. Rest of the SMA-7 is within normal limit. Today's hemoglobin and hematocrit 11 and 33.4, white count and platelet count are within normal limit. ASSESSMENT: 1. Status post cerebrovascular accident. 2. Chronic renal insufficiency. 3. Hypertension and diabetes mellitus. 4. Mild anemia. RECOMMENDATIONS: Continue aspirin 81 mg once a day, Coreg 6.25 mg twice a day, Cozaar 50 mg once a day, Crestor 10 mg once a day. The patient is awaiting authorization for rehab for physical therapy. Teja Doll MD
--- NOTE | 2018-06-29 02:47 | PN ---
DATE: 06/28/2018 SUBJECTIVE: The patient is feeling better. She is postop, acute rehab tomorrow morning. PHYSICAL EXAMINATION: VITAL SIGNS: Blood pressure 148/91, pulse 59, respiratory rate 20, temperature 98.8. LUNGS: Clear. ABDOMEN: Soft. CENTRAL NERVOUS SYSTEM: Right-sided weakness. ASSESSMENT: 1. Cerebrovascular accident. 2. Diabetes. 3. Hypertension. 4. Hyperlipidemia. PLAN: Subacute rehab placement. Wilfred Chacon MD
[2018-06-29 08:30] VITALS: TEMP 98.1
[2018-06-29] MEDS: Pantoprazole 40 mg EC Tab PO SCH (10:20)
--- NOTE | 2018-06-29 14:59 | IP.NPCORE ---
Stroke Core Measure - CQM - Stroke Antithrombotic Prescribed: Yes Anticoagulation Prescribed for Atrial Flutter, Atrial Fibrillation and History of:: Not Applicable Statin prescribed: Yes
[2018-06-29] MEDS ORDERED: (Novolog) Insulin Aspart, Recombinant 100 u/ml 10 ml vial SC SCH ×2 (15:09→16:30)
--- NOTE | 2018-06-29 15:10 | CP.PCM.PN ---
Subjective - Date & Time of Evaluation Date of Evaluation: 06/29/18 Time of Evaluation: 15:00 - Subjective Subjective: patient seen today, denies any chest pain, sob. dizziness, palpitations, headache, N/V/ oob ambulating with assistance labs and vss- reviewed - stable Objective - Vital Signs/Intake and Output Vital Signs (last 24 hours): Temp Pulse Resp BP Pulse Ox 98.1 F 59 L 20 144/72 99 06/29/18 07:00 06/29/18 07:00 06/29/18 07:00 06/29/18 07:00 06/29/18 07:00 - Medications Medications: Current Medications Acetaminophen (Tylenol 325mg Tab) 650 mg PO Q6 PRN PRN Reason: Pain, moderate (4-7) Aspirin (Aspirin Chewable) 81 mg PO DAILY REPLACED BY [facility] Last Admin: 06/29/18 10:20 Dose: 81 mg Carvedilol (Coreg) 6.25 mg PO BID REPLACED BY [facility] Last Admin: 06/29/18 10:20 Dose: 6.25 mg Folic Acid (Folic Acid) 1 mg PO DAILY REPLACED BY [facility] Last Admin: 06/29/18 10:19 Dose: 1 mg Insulin Aspart (Novolog) 0 unit [facility]; Protocol Losartan Potassium (Cozaar) 50 mg PO DAILY REPLACED BY [facility] Last Admin: 06/29/18 10:19 Dose: 50 mg Metformin HCl (Glucophage) 500 mg PO BID REPLACED BY [facility] Last Admin: 06/29/18 10:20 Dose: 500 mg Pantoprazole Sodium (Protonix Ec Tab) 40 mg PO DAILY REPLACED BY [facility] Last Admin: 06/29/18 10:20 Dose: 40 mg Rosuvastatin Calcium (Crestor) 10 mg PO HS REPLACED BY [facility] Last Admin: 06/28/18 21:38 Dose: 10 mg - Labs Labs: 06/26/18 13:58 06/28/18 11:24 PT 10.7 SECONDS (9.7-12.2) 06/24/18 11:40 INR 1.0 06/24/18 11:40 APTT 36 SECONDS (21-34) H 06/24/18 11:40 Assessment and Plan - Assessment and Plan (Free Text) Assessment: A/P 72 year old female WITH PMHX OF Anemia, HTN, , Hyperlipidemia presents to the ED for evaluation of new onset slurred speech and right leg weakness admitted with CVA patient accepted at [facility] for rehab and patient and family in agreement D/w Dr. chacon, cleared for discharge to [facility] today and Dr. Chacon will follow the patient at [facility] discharge plan discussed with patient , who understand s and agrees with plan -
[2018-06-29 17:16] VITALS: BP 153/84; PULSE 71; O2SAT 100
--- NOTE | 2018-06-29 18:20 | PN ---
DATE: 06/29/2018 SUBJECTIVE: The patient denies chest pain or shortness of breath. She is awaiting physical therapy session. PHYSICAL EXAMINATION VITAL SIGNS: Blood pressure is 144/72, heart rate 59, temperature 98.1, respirations 20. HEENT: Normocephalic. CHEST: Clear. HEART: S1 and S2, regular. ABDOMEN: Soft. EXTREMITIES: 1+ pitting edema. LABORATORY DATA: Today's blood sugar is 129 and 193 respectively. ASSESSMENT: 1. Status post acute cerebrovascular accident. 2. Hypertension. 3. Uncontrolled diabetes mellitus. 4. Chronic renal insufficiency. 5. Borderline troponin elevation, most likely related to the acute cerebrovascular accident. RECOMMENDATIONS: Continue aspirin 81 mg once a day, Coreg 6.25 mg twice a day, Cozaar 50 mg once a day, Crestor 10 mg once a day, Glucophage 500 mg twice a day. Teja Doll MD
--- NOTE | 2018-06-29 21:12 | CP.PCM.DIS ---
Provider - Provider Date of Admission: 06/26/18 17:35 Attending physician: Wilfred Chacon MD Consults: 06/24/18 15:40 Cardiology Consult Routine Comment: Consulting Provider: Teja Doll Consulting Physician: Teja Doll Reason for Consult: troponin Neurology Consult Routine Comment: Consulting Provider: Pro Harmon Consulting Physician: Pro Harmon Reason for Consult: cva Time Spent in preparation of Discharge (in minutes): 30 Hospital Course - Lab Results Lab Results: Most Recent Lab Values WBC 7.0 K/uL (4.8-10.8) 06/26/18 13:58 RBC 3.62 Mil/uL (3.80-5.20) L 06/26/18 13:58 Hgb 11.0 g/dL (11.0-16.0) 06/26/18 13:58 Hct 33.4 % (34.0-47.0) L 06/26/18 13:58 MCV 92.1 fL (81.0-99.0) 06/26/18 13:58 MCH 30.4 pg (27.0-31.0) 06/26/18 13:58 MCHC 33.0 g/dL (33.0-37.0) 06/26/18 13:58 RDW 15.3 % (11.5-14.5) H 06/26/18 13:58 Plt Count 219 K/uL (130-400) 06/26/18 13:58 MPV 8.9 fL (7.2-11.7) 06/26/18 13:58 Neut % (Auto) 53.8 % (50.0-75.0) 06/26/18 13:58 Lymph % (Auto) 35.9 % (20.0-40.0) 06/26/18 13:58 Hanson % (Auto) 7.0 % (0.0-10.0) 06/26/18 13:58 Eos % (Auto) 2.9 % (0.0-4.0) 06/26/18 13:58 Baso % (Auto) 0.4 % (0.0-2.0) 06/26/18 13:58 Neut # (Auto) 3.8 K/uL (1.8-7.0) 06/26/18 13:58 Lymph # (Auto) 2.5 K/uL (1.0-4.3) 06/26/18 13:58 Hanson # (Auto) 0.5 K/uL (0.0-0.8) 06/26/18 13:58 Eos # (Auto) 0.2 K/uL (0.0-0.7) 06/26/18 13:58 Baso # (Auto) 0.0 K/uL (0.0-0.2) 06/26/18 13:58 PT 10.7 SECONDS (9.7-12.2) 06/24/18 11:40 INR 1.0 06/24/18 11:40 APTT 36 SECONDS (21-34) H 06/24/18 11:40 Sodium 136 mmol/L (132-148) 06/28/18 11:24 Potassium 4.3 mmol/L (3.6-5.2) 06/28/18 11:24 Chloride 102 mmol/L (98-107) 06/28/18 11:24 Carbon Dioxide 27 mmol/L (22-30) 06/28/18 11:24 Anion Gap 11 (10-20) 06/28/18 11:24 BUN 35 mg/dL (7-17) H 06/28/18 11:24 Creatinine 1.7 mg/dL (0.7-1.2) H 06/28/18 11:24 Est GFR ( Amer) 36 06/28/18 11:24 Est GFR (Non-Af Amer) 30 06/28/18 11:24 POC Glucose (mg/dL) 139 mg/dL (65-110) H 06/29/18 16:38 Random Glucose 198 mg/dL (65-105) H 06/28/18 11:24 Hemoglobin A1c 8.1 % (4.2-6.5) H 06/24/18 11:40 Calcium 9.2 mg/dl (8.6-10.4) 06/28/18 11:24 Total Bilirubin 0.6 mg/dL (0.2-1.3) 06/24/18 12:34 AST 21 U/L (14-36) 06/24/18 12:34 ALT 17 U/L (9-52) 06/24/18 12:34 Alkaline Phosphatase 94 U/L (38-126) 06/24/18 12:34 Troponin I 0.1280 ng/mL (0.00-0.120) H* 06/25/18 00:25 Total Protein 7.4 g/dL (6.3-8.3) 06/24/18 12:34 Albumin 4.1 g/dL (3.5-5.0) 06/24/18 12:34 Globulin 3.3 gm/dL (2.2-3.9) 06/24/18 12:34 Albumin/Globulin Ratio 1.3 (1.0-2.1) 06/24/18 12:34 Triglycerides 86 mg/dL (0-149) 06/24/18 12:34 Cholesterol 158 mg/dL (0-199) 06/24/18 12:34 LDL Cholesterol Direct 46 mg/dL (0-129) 06/24/18 12:34 HDL Cholesterol 68 mg/dL (30-70) 06/24/18 12:34 Homocysteine 17.3 umol/L (4.7-12.6) H 06/24/18 18:47 Free T4 1.14 ng/dL (0.78-2.19) 06/24/18 18:47 TSH 3rd Generation 1.55 mIU/L (0.46-4.68) 06/24/18 18:47 Urine Color Yellow (YELLOW) 06/24/18 11:45 Urine Clarity Clear (Clear) 06/24/18 11:45 Urine pH 5.0 (5.0-8.0) 06/24/18 11:45 Ur Specific Gantt 1.011 (1.003-1.030) 06/24/18 11:45 Urine Protein Negative mg/dL (NEGATIVE) 06/24/18 11:45 Urine Glucose (UA) Normal mg/dL (Normal) 06/24/18 11:45 Urine Ketones Negative mg/dL (NEGATIVE) 06/24/18 11:45 Urine Blood Negative (NEGATIVE) 06/24/18 11:45 Urine Nitrate Negative (NEGATIVE) 06/24/18 11:45 Urine Bilirubin Negative (NEGATIVE) 06/24/18 11:45 Urine Urobilinogen Normal mg/dL (0.2-1.0) 06/24/18 11:45 Ur Leukocyte Esterase Neg Chip/uL (Negative) 06/24/18 11:45 Urine WBC (Auto) 1 /hpf (0-5) 06/24/18 11:45 Urine RBC (Auto) 1 /hpf (0-3) 06/24/18 11:45 Ur Squamous Epith Cells 3 /hpf (0-5) 06/24/18 11:45 Urine Bacteria Rare (<OCC) 06/24/18 11:45 Discharge Plan - Discharge Medications Prescriptions: SITagliptin [Januvia] 25 mg PO DAILY #30 tab - Follow Up Plan Condition: STABLE Disposition: HOME/ ROUTINE Instructions: Heart Healthy Diet, Diabetes Exchange Diet, Stroke (DC), Diabetes Diet , Generalized Weakness (DC) Additional Instructions: Please admit patient under Dr. Chacon service - Please call Dr. Chacon upon patient arrival to the facility Please continue medication as pe r med rec. please do labs weekly starting Tuesday all other orders as per Dr. Chacon patient needs to f/u with Dr. Harmon upon discharge from Rehab Referrals: Pro Harmon MD [Staff Provider] - Wilfred Chacon MD [Staff Provider] -
--- NOTE | 2018-06-29 21:20 | VASCLAB ---
Date of service: 06/26/2018 PROCEDURE: Carotid Duplex Exam. HISTORY: Slurred speech COMPARISON: None available. TECHNIQUE: Grayscale and duplex Doppler evaluation of the cervical carotid and vertebral arteries were performed. The common carotid, carotid bifurcations and cervical Internal Carotid Artery (ICA) and proximal External Carotid Artery (ECA) were evaluated. The vertebral arteries were evaluated for gross patency and flow direction. Report prepared by Agustin Bhagat, BS, RVT FINDINGS: RIGHT CAROTID ARTERIES: 1. Common Carotid Artery: No significant focal plaque formation of the right common carotid artery. Mild intimal hyperplasia. Maximum Peak Systolic velocity: 123 cm/sec: End-diastolic velocity 15 cm/sec. 2. Carotid Bifurcation: Heterogeneous plaque formation. Maximum Peak Systolic velocity: 65 cm/sec: End-diastolic velocity 10 cm/sec. 3. Internal Carotid Artery: Plaque description: Mild heterogeneous plaque. 3.1. Proximal Segment: Peak systolic velocity 83 cm/sec: End-diastolic velocity 17 cm/sec - % stenosis 0-15% 3.2. Middle Segment: Peak systolic velocity 109 cm/sec: End-diastolic velocity 33 cm/sec - % stenosis 0-15% 3.3. Distal Segment: Peak systolic velocity 105 cm/sec: End-diastolic velocity 24 cm/sec - % stenosis 0-15% 4. External Carotid Artery: No significant focal plaque formation. Peak systolic velocity 68 cm/sec 5. ICA/CCA Ratio: 1.3 LEFT CAROTID ARTERIES: 1. Common Carotid Artery: No significant focal plaque formation of the left common carotid artery. Maximum Peak Systolic velocity: 140 cm/sec: End-diastolic velocity 22 cm/sec. 2. Carotid Bifurcation: Heterogeneous and irregular calcific plaque formation. Maximum Peak Systolic velocity: 89 cm/sec: End-diastolic velocity 12 cm/sec. 3. Internal Carotid Artery: Plaque description: Heterogeneous and irregular calcific 3.1. Proximal Segment: Peak systolic velocity 85 cm/sec: End-diastolic velocity 19 cm/sec - % stenosis 0-15% 3.2. Middle Segment: Peak systolic velocity 63 cm/sec: End-diastolic velocity 15 cm/sec - % stenosis 0-15% 3.3. Distal Segment: Peak systolic velocity 85 cm/sec: End-diastolic velocity 27 cm/sec - % stenosis 0-15% 4. External Carotid Artery: No significant focal plaque formation. Peak systolic velocity 70 cm/sec 5. ICA/CCA Ratio: 0.8 VERTEBRAL ARTERIES: 1. Right Vertebral Artery: The right vertebral artery flow direction is antegrade. 2. Left Vertebral Artery: The left vertebral artery flow direction is antegrade. OTHER FINDINGS: 1. Right Brachial Blood pressure: 160 mmHg. 2. Left Brachial Blood pressure: Unable to obtain. 3. Multiple heterogeneous thyroid nodules identified. IMPRESSION: RIGHT: Duplex scan does not suggest hemodynamically significant stenosis of the right extracranial carotid arteries. LEFT: Duplex scan does not suggest hemodynamically significant stenosis of the left extracranial carotid arteries. Heterogeneous and irregular calcific plaque in the carotid bifurcation. Multiple heterogeneous thyroid nodules. Dedicated ultrasound recommended.
--- NOTE | 2018-06-30 05:46 | DS ---
DISCHARGE DIAGNOSES: 1. Cerebrovascular accident. 2. Hypertension. 3. Hyperlipidemia. 4. Type II diabetes. HISTORY OF PRESENT ILLNESS: This is an elderly -[place] female with right-sided weakness and numbness of the face, difficulty walking who was admitted with weakness, severe arthritis, on physical therapy rehab and the patient's condition started improving. She felt better and she could not fit into the MRI x-ray machine, so she has been treated conservatively. PHYSICAL EXAMINATION: VITAL SIGNS: Blood pressure 156/84, pulse 71, respiratory rate 20, and temperature 98.1. LUNGS: Clear. CARDIOVASCULAR: S1, S2. Regular. ABDOMEN: Soft. PLAN: Discharge the patient to subacute rehab. Wilfred Chacon MD
== END 2018-06-29 19:24 | DRG 65 ==
LOC: C.ER 10:33 → C.3T 12:15 → C.9E 12:47 → C.3T 12:53 → C.9E 13:55 → C.6T 14:10 → OBSVTOIN 06-26 17:35
PROVIDERS: ADMIT Internal Medicine; ATTEND Internal Medicine
DX: I63.9 Cerebral infarction, unspecified (principal); G81.91 Hemiplegia, unspecified affecting right dominant side; E66.01 Morbid (severe) obesity due to excess calories; E78.00 Pure hypercholesterolemia, unspecified; R47.01 Aphasia; E04.1 Nontoxic single thyroid nodule; E11.40 Type 2 diabetes mellitus with diabetic neuropathy, unspecified; R47.81 Slurred speech; I48.0 Paroxysmal atrial fibrillation; D64.9 Anemia, unspecified; E11.22 Type 2 diabetes mellitus with diabetic chronic kidney disease; E11.65 Type 2 diabetes mellitus with hyperglycemia; I12.9 Hypertensive chronic kidney disease with stage 1 through stage 4 chronic kidney disease, or unspecified chronic kidney disease; N18.9 Chronic kidney disease, unspecified; Z79.4 Long term (current) use of insulin